=== PATIENT | male | born 1950 | race Caucasian/White ===

== ENCOUNTER 2017-01-09 08:52 | Outpatient (CLI) | payer OTHER ==
[2017-01-09 09:33] LABS: eGFR (African) > 60; eGFR (Non-African) > 60
== END 2017-01-09 08:53 ==
LOC: LAB 08:52
PROVIDERS: ATTEND Family Medicine
DX: I10 Essential (primary) hypertension (principal); E78.5 Hyperlipidemia, unspecified
CPT/HCPCS: 36415; 80053; 80061

== ENCOUNTER 2017-01-16 14:44 | Outpatient (CLI) | payer OTHER | END 2017-01-16 14:45 | LOC: LAB 14:44 | PROVIDERS: ATTEND Family Medicine | DX: R73.9 Hyperglycemia, unspecified (principal) | CPT/HCPCS: 36415; 83036 ==

== ENCOUNTER 2017-01-30 08:25 | Outpatient (CLI) | payer OTHER ==
[2017-01-30 09:18] LABS: eGFR (African) > 60; eGFR (Non-African) > 60
== END 2017-01-30 08:26 ==
LOC: LAB 08:25
PROVIDERS: ATTEND Family Medicine
DX: I10 Essential (primary) hypertension (principal); E78.5 Hyperlipidemia, unspecified; Z12.5 Encounter for screening for malignant neoplasm of prostate
CPT/HCPCS: 36415; 80053; 80061; 84153

== ENCOUNTER → 2018-06-11 | Outpatient (CLI) | payer OTHER ==
[2018-06-11 09:44] LABS: eGFR (African) 56; eGFR (Non-African) 46
== END ==
LOC: LAB 08:01
PROVIDERS: ATTEND Family Medicine
DX: E78.5 Hyperlipidemia, unspecified (principal); I10 Essential (primary) hypertension; Z12.5 Encounter for screening for malignant neoplasm of prostate; R73.9 Hyperglycemia, unspecified
CPT/HCPCS: 36415; 80053; 80061; 83036; 84153; G0103

== ENCOUNTER 2018-07-16 12:11 | Outpatient (CLI) | payer OTHER ==
[2018-07-16 13:23] LABS: eGFR (African) > 60; eGFR (Non-African) > 60
== END 2018-07-16 12:12 ==
LOC: LAB 12:11
PROVIDERS: ATTEND Family Medicine
DX: I10 Essential (primary) hypertension (principal)
CPT/HCPCS: 36415; 80048; 84550

== ENCOUNTER 2019-09-14 14:19 | Outpatient (CLI) | payer OTHER ==
--- NOTE | 2019-09-14 14:48 | Diagnostic Imaging Report ---
PATIENT MR#: [id number] PATIENT PATIENT NAME: HAYLIE GAFFNEY DATE OF : 1950 REFERRING PHYSICIAN: Charles Ahmadi EXAM DATE: 09/14/2019 ACCESSION NUMBER: [id number] EXAM DESCRIPTION: TIBIA FIBULA 2 VIEW Examination: Plain film right tibia/fibula History: LATERAL RIGHT LEG PAIN Comparison exams: None available Findings: 3 views of the right tibia fibula demonstrates normal cortical margins. Articular spurring. No evidence for fracture line. No soft tissue abnormality. Impression: Degenerative changes. No acute appearing osseous abnormality. Read by: Dr. Manpreet Mock Transcribed by: Transcribed Date: Electronically signed by: Dr. Manpreet Mock Date signed: 09/14/2019 2:47:30 PM
== END 2019-09-14 14:23 | disposition home or self-care (01) ==
LOC: RAD 14:19
PROVIDERS: ATTEND Family Medicine
DX: M79.604 Pain in right leg (principal)
CPT/HCPCS: 73590